=== PATIENT | male | born 1990 | race Caucasian/White ===

== ENCOUNTER 2016-03-07 15:58 | Emergency (ER) | payer OTHER | END 2016-03-07 17:23 | disposition home or self-care (01) | LOC: TRA 15:58 | DX: S20.219A Contusion of unspecified front wall of thorax, initial encounter (principal); V49.40XA Driver injured in collision with unspecified motor vehicles in traffic accident, initial encounter | CPT/HCPCS: 71020; 80048; 81003; 82150; 83690; 85025; 86850; 86900; 86901; 93005; 99281; 99285; G0480 ==